=== PATIENT | female | born 1985 | race American Indian/Alaskan Native ===

== ENCOUNTER 2018-05-28 21:37 | Emergency (ER) | payer BC ==
[2018-05-28 21:46] VITALS: BMI 44.0
[2018-05-28 22:43] LABS: HCG,QUALITATIVE URINE POSITIVE (NEGATIVE)
[2018-05-28 22:49] LABS: SQUAMOUS EPITHIAL 2 /hpf (0-5); URINE BILIRUBIN NEGATIVE (NEGATIVE); URINE BLOOD NEGATIVE (NEGATIVE); URINE CLARITY Clear (Clear); URINE COLOR Yellow (YELLOW); URINE GLUCOSE (UA) NORMAL (Normal); URINE LEUKOCYTE ESTERASE NEG Leu/uL (Negative); URINE PROTEIN NEGATIVE (NEGATIVE); URINE UROBILINOGEN NORMAL mg/dL (0.2-1.0)
[2018-05-28] MEDS ORDERED: Sodium Chloride 0.9% 1,000 ML IV ONE (22:50)
[2018-05-28 22:53] LABS: RENAL EPITHELIAL 1 /hpf (0-3); URINE CALCIUM OXALATE CRYSTALS OCC /hpf (<OCC)
[2018-05-28] MEDS ORDERED: Sodium Chloride 0.9% 1,000 ML ONE (22:56)
--- NOTE | 2018-05-28 23:05 | C.PDOC ---
History Of Present Illness 32 year old female () 8 weeks by date presents to the ED c/o abdominal pain during this past week. Patient also reports noticing mild vaginal spotting. Patient denies any pain now, fever, chills, nausea, vomit, diarrhea. Time Seen by Provider: 05/28/18 22:47 Chief Complaint (Nursing): Female Genitourinary History Per: Patient History/Exam Limitations: no limitations Onset/Duration Of Symptoms: Days Current Symptoms Are (Timing): Gone Quality Of Discomfort: "Pain" Associated Symptoms: Urinary Symptoms Recent travel outside of the [place]: No Additional History Per: Patient Abnormal Vaginal Bleeding: No : 3 Para: 0 Past Medical History Reviewed: Historical Data, Nursing Documentation, Vital Signs Vital Signs: Last Vital Signs Temp 97.6 F 05/29/18 01:20 Pulse 76 05/29/18 01:20 Resp 16 05/29/18 01:20 BP 111/75 05/29/18 01:20 Pulse Ox 100 05/29/18 01:20 - Medical History PMH: Graves' Disease Surgical History: No Surg Hx Family History: States: Unknown Family Hx - Social History Hx Alcohol Use: No Hx Substance Use: No Review Of Systems Except As Marked, All Systems Reviewed And Found Negative. Gastrointestinal: Positive for: Abdominal Pain Genitourinary: Positive for: Vaginal Discharge Physical Exam - Physical Exam Appears: Non-toxic, No Acute Distress Skin: Normal Color, Warm, Dry Head: Atraumatic, Normacephalic Eye(s): bilateral: Normal Inspection Oral Mucosa: Moist Neck: Normal ROM, Supple Chest: Symmetrical Cardiovascular: Rhythm Regular Respiratory: Normal Breath Sounds, No Rales, No Rhonchi, No Wheezing Gastrointestinal/Abdominal: Soft, No Tenderness, No Guarding, No Rebound, Other (obese) Pelvic: Normal External Exam, No Vaginal Bleeding, No Cervix Open Extremity: Normal ROM, No Tenderness, No Swelling Neurological/Psych: Oriented x3, Normal Speech Gait: Steady ED Course And Treatment - Laboratory Results Result Diagrams: 05/28/18 23:06 05/28/18 23:06 O2 Sat by Pulse Oximetry: 99 (ON RA) Pulse Ox Interpretation: Normal - CT Scan/US pelvic US Other Rad Studies (CT/US): Read By Radiologist, Radiology Report Reviewed CT/US Interpretation: IMPRESSION: Early versus demise. No heart tones at this time. Consider serial hCG followup. and repeat ultrasound in one or 2 weeks for more definitive assessment of viability. Small. subchorionic bleed. Medical Decision Making Medical Decision Making: Impression: abdominal pain, vaginal spotting Plan: * Labs * IV fluids * Pelvic US Spoke with Dr. Cramer advised patient to follow up as an outpatient at her office for possible demise and will evaluate for D&C. Disposition - Disposition [facility]errals[facility] [Outside] Tab Cramer MD [Staff Provider] - Disposition: HOME/ ROUTINE Disposition Time: 01:00 Condition: STABLE Additional Instructions: please follow up outpatient with your obgyn in next 1- 2 days. you may need additional testing and procedures. return to er with worsening symptoms or concerns. Instructions: Threatened Miscarriage Forms: [employer] ([place]) - Clinical Impression Clinical Impression: Threatened miscarriage - Scribe Statement The provider has reviewed the documentation as recorded by the Scribe Trell Villareal All medical record entries made by the Scribe were at my direction and personally dictated by me. I have reviewed the chart and agree that the record accurately reflects my personal performance of the history, physical exam, medical decision making, and the department course for this patient. I have also personally directed, reviewed, and agree with the discharge instructions and disposition.
[2018-05-28 23:11] LABS: BASO # 0.1 K/uL (0.0-0.2); EOS # 0.1 K/uL (0.0-0.7); EOS % 1.7 % (0.0-4.0); HEMOGLOBIN 12.1 g/dL (11.0-16.0); LYMPH # 2.6 K/uL (1.0-4.3); LYMPH % 32.7 % (20.0-40.0); MEAN CELL VOLUME 88.5 fL (81.0-99.0); MEAN CORPUSCULAR HEMOGLOBIN 29.2 pg (27.0-31.0); MEAN PLATELET VOLUME 7.3 fL (7.2-11.7); MONO # 0.7 K/uL (0.0-0.8); MONO % 9.3 % (0.0-10.0); NEUT # 4.3 K/uL (1.8-7.0); NEUT % 55.3 % (50.0-75.0); RBC 4.15 Mil/uL (3.80-5.20); RED CELL DISTRIBUTION WIDTH 14.1 % (11.5-14.5); WHITE BLOOD COUNT 7.8 K/uL (4.8-10.8)
[2018-05-28 23:19] LABS: INR 1.1; PROTHROMBIN TIME 11.5 SECONDS (9.7-12.2)
[2018-05-28 23:28] LABS: ALB/GLOB RATIO 1.1 (1.0-2.1); ALT/SGPT 37 U/L (9-52); AST/SGOT 25 U/L (14-36); BLOOD UREA NITROGEN 12 mg/dL (7-17); CALCIUM 9.3 mg/dl (8.6-10.4); GFR AFRICAN-AMERICAN > 60; GFR NON-AFRICAN AMERICAN > 60
[2018-05-29 01:21] VITALS: BP 111/75; PULSE 76; RESP 16; TEMP 97.6
[2018-05-29 13:24] VITALS: O2SAT 99
--- NOTE | 2018-05-29 14:03 | US ---
HISTORY: abd pain and preg COMPARISON: None available. TECHNIQUE: Transabdominal/transvaginal sonographic evaluation of the pelvis performed FINDINGS: UTERUS: Measures 8.3 x 6.0 x 7.5 cm. Normal in size and appearance. No fibroid or other mass lesion seen. ENDOMETRIUM: There is a small elliptical shaped the slightly irregular fluid collection within the endometrial canal. Gestational sac: MS D = at 1.56 cm = 5 weeks 6 days Yolk sac: Not visualized. pole: CRL = 0.43 cm = 6 weeks 1 day MSD = 1.56 = 5 weeks 6 days Heart rate: Not detected AUA: 6 weeks 0 days 0 weeks 3 days ELIZABETH based on ultrasound = 01/21/2029 There is a small subchorionic hemorrhage measures 1.3 x 0.8 x 0.8 cm CERVIX: Cervix measures 3.6 cm. No cervical abnormality identified. RIGHT OVARY: Measures 3.0 x 2.2 x 3.0 cm. No solid mass. Normal flow. LEFT OVARY: Measures 3.2 x 2.5 x 3.0 cm. No solid mass. Normal flow. FREE FLUID: There is a small amount of free fluid seen within cul de sac OTHER FINDINGS: None. IMPRESSION: pole visible though no heart rate detected. . Small subchorionic hemorrhage. Findings may represent early versus demise. . Recommend followup serial serum beta HCG and serial ultrasound to assess for development of viable gestation or spontaneous . Preliminary report provided by overnight radiology service
== END 2018-05-29 01:21 | disposition home or self-care (01) ==
LOC: C.ER 21:37
DX: O20.0 Threatened abortion (principal); Z3A.08 8 weeks gestation of pregnancy
CPT/HCPCS: 76817; 80053; 81001; 84702; 84703; 85025; 85610; 85730; 86850; 86900; 96360; 99285; J2792; J7030